=== PATIENT | male | born 1980 | race Caucasian/White ===

== ENCOUNTER 2017-07-24 10:13 | Emergency (ER) | payer OTHER ==
[2017-07-24] MEDS ORDERED: Ketorolac INJ* 60 MG/2 ML VIAL IM ONE (12:34)
[2017-07-24 12:42] VITALS: BP 142/90
--- NOTE | 2017-08-03 16:46 | UC ---
Jayden Miller Nilda, scribed for Violet Hamilton DO on 07/24/17 at 1234 . Back Pain HPI - HPI Summary HPI Summary: This patient is a 37 year old M presenting to [facility] accompanied by_ with a chief complaint of exacerbated chronic left lower back pain (constant, stabbing ) for the past two days. The patient normally rates the pain 9/10 in severity but is currently 3/10. Symptoms aggravated by standing, bending over, and sitting, and alleviated by recumbent position. He is on pain medication (muscle relaxer, ibuprofen rotated with Tylenol), which are currently not relieving his pain. He is unsure how back pain was exacerbated. Patient reports numbness of LLE (has occurred before), and coughing and chills (allergies). He denies bowel and urinary incontinence, abd pain, and NVD. Patient notes that he has sustained multiple injuries to this same area of his back over the past few years. - History of Current Complaint Chief Complaint: UCBackPain Stated Complaint: BACK PAIN Onset/Duration: Gradual Onset, Lasting Weeks, Still Present, Worse Since - two days ago Timing: Constant Severity Currently: Severe Pain Intensity: 9 Pain Scale Used: 0-10 Numeric Back Pain: Is Diffuse Character: Sharp Aggravating Factor(s): Bending, Other - standing and sitting Alleviating Factor(s): Other - recumbent position Associated Signs And Symptoms: Positive: Numbness - LLE - Allergies/Home Medications Allergies/Adverse Reactions: Allergies Allergy/AdvReac Type Severity Reaction Status Date / Time No Known Allergies Allergy Verified 07/24/17 10:57 PMH/Surg Hx/FS Hx/Imm Hx Endocrine History: Diabetes Respiratory History: Asthma - childhood Other GI/ History: C. Diff (1 year ago) - Surgical History Surgical History: None - Family History Known Family History: Positive: Cardiac Disease, Hypertension, Diabetes - Social History Alcohol Use: Occasionally Substance Use Type: None Smoking Status (MU): Never Smoked Tobacco Review of Systems Constitutional: Chills - allergies Respiratory: Cough - allergies Gastrointestinal: Other - negative: abdominal pain, N/V/D Genitourinary: Other - negative bowel and urinary incontinence Musculoskeletal: Other: - left lower back pain Neurological: Numbness - LLE All Other Systems Reviewed And Are Negative: Yes Physical Exam Triage Information Reviewed: Yes Appearance: Well-Appearing, No Pain Distress, Well-Nourished Vital Signs: Initial Vital Signs Temp 98.6 F 07/24/17 11:00 Pulse 80 07/24/17 11:00 Resp 20 07/24/17 11:00 BP 138/94 07/24/17 11:00 Pulse Ox 100 07/24/17 11:00 Vital Signs Reviewed: Yes Eyes: Positive: Conjunctiva Clear. Negative: Discharge ENT: Positive: Hearing grossly normal. Negative: Muffled/hoarse voice Neck exam: Normal Neck: Positive: Supple Respiratory: Positive: Lungs clear, Normal breath sounds, No respiratory distress, No accessory muscle use Cardiovascular: Positive: RRR, No Murmur Musculoskeletal: Positive: Other: - Strength sensation and reflex intact bilaterally; palpable paraspinal spasms; noted left greater than right; ROM limited in all planes due to pain Neurological: Positive: Alert, Muscle Tone Normal Psychological Exam: Normal Psychological: Positive: Age Appropriate Behavior Skin Exam: Normal Skin: Positive: Other - warm, dry, normal color Back Pain Course/Dx - Course Course Of Treatment: This patient is a 37 year old M presenting to [facility] with a chief complaint of exacerbated chronic left lower back pain (constant, stabbing ) for the past two days. The patient previously rated the pain 9/10 in severity but is currently 3/10. Symptoms are aggravated by standing, bending over, and sitting, and are alleviated by recumbent position. He is on pain medication ( muscle relaxer, ibuprofen rotated with Tylenol), which are currently not relieving his pain. He is unsure how back pain was exacerbated. Patient reports numbness of LLE (has occurred before), and coughing and chills (allergies). He denies bowel and urinary incontinence, abd pain, and N/V/D. Patient notes that he has sustained multiple injuries to this same area of his back over the past few years. High blood pressure noted. Patient was administered Toradol. He is stable and will be discharged with diagnoses of lumbar radiculopathy and back pain. He was instructed to follow up with PCP in 4 days. Patient is agreeable with this plan. - Differential Dx/Diagnosis Provider Diagnoses: lumbar radiculopathy, chronic low back pain, Elevated blood pressure without diagnosis of hypertension. Discharge - Discharge Plan Condition: Stable Disposition: HOME Patient Education Materials: Ketorolac (By injection), Lumbar Radiculopathy (ED ), Chronic Back Pain (ED) Forms: *Work Release Referrals: Amie Cm MD [Primary Care Provider] - 4 Days Additional Instructions: YOU WOULD LIKELY BENEFIT FROM OSTEOPATHIC MANIPULATION. WE RECOMMEND THAT YOU FIND AN OSTEOPATHIC PHYSICIAN IN YOUR AREA WHO DOES LYMPHATIC, MYOFACIAL AND VISCERAL WORK ACUPUNCTURE IS ANOTHER GREAT OPTION FOR IMPROVING THE PAIN IN YOUR BACK. Your blood pressure was elevated at this visit. That does not mean you have hypertension, it is probably due to your current condition. Please follow up with your primary care provider. The documentation as recorded by the Jayden cruz Nilda accurately reflects the service I personally performed and the decisions made by me, Violet Hamilton DO.
== END 2017-07-24 13:05 | disposition home or self-care (01) ==
LOC: UCEAST 10:13
DX: M54.16 Radiculopathy, lumbar region (principal); G89.29 Other chronic pain; M54.5 Low back pain; R03.0 Elevated blood-pressure reading, without diagnosis of hypertension; E11.9 Type 2 diabetes mellitus without complications; J45.909 Unspecified asthma, uncomplicated
CPT/HCPCS: 96372; 99212; G0463; J1885

== ENCOUNTER 2017-10-30 10:42 | Emergency (ER) | payer OTHER ==
[2017-10-30 11:14] VITALS: BP 158/95
--- NOTE | 2017-10-30 12:48 | UC ---
Zoltan Miller Stephanie, scribed for Cherry Asif MD on 10/30/17 at 1159 . Shortness of Breath HPI - HPI Summary HPI Summary: The pt is a 37 y/o M presenting to with c/o SOB that began 3 days ago on . Symptoms include LENZ, nausea, rhinorrhea, sore throat, decreased oral intake, burning chest pain associated with cough, vomiting and cough. The pt denies fever, abd pain and diarrhea. Throat pain is rated as a 3 in severity. The pt denies exposure to sick contacts. Pt is diabetic and checks blood sugar 2x per day. Morning blood sugar is typically between 100 and 120. A1C was documented at a 5 a year ago. - History of Current Complaint Chief Complaint: UCGeneralIllness Stated Complaint: COUGH CONGESTION Time Seen by Provider: 10/30/17 11:39 Hx Obtained From: Patient Onset/Duration: Gradual Onset, Lasting Days - 3, Still Present Timing: Constant Current Severity: Mild Alleviating Factors: Nothing Associated Signs & Symptoms: Positive: Cough (Productive), Chest Pain w/Cough. Negative: Fever - Allergy/Home Medications Allergies/Adverse Reactions: Allergies Allergy/AdvReac Type Severity Reaction Status Date / Time No Known Allergies Allergy Verified 10/30/17 11:14 Home Medications: Home Medications Cyclobenzaprine (NF) [Cyclobenzaprine 5 MG (NF)] 5 mg PO TID PRN 10/30/17 [ History Confirmed 10/30/17] Fexofenadine HCl [Allergy 24-Hr] 180 mg PO DAILY 10/30/17 [History Confirmed ] PMH/Surg Hx/FS Hx/Imm Hx Endocrine History: Diabetes Psychological History: Bipolar Disorder - Surgical History Surgical History: None Surgery Procedure, Year, and Place: denies - Family History Known Family History: Positive: Cardiac Disease, Hypertension, Diabetes - Social History Occupation: Employed Full-time Lives: Dormitory/Roommates Alcohol Use: Occasionally Substance Use Type: None Smoking Status (MU): Never Smoked Tobacco Review of Systems Constitutional: Other - decreased oral intake Skin: Negative Eyes: Negative ENT: Sore Throat, Nasal Discharge Respiratory: Cough Cardiovascular: Chest Pain - associated with cough Gastrointestinal: Vomiting, Nausea Genitourinary: Negative Motor: Negative Neurovascular: Negative Musculoskeletal: Negative Neurological: Headache Psychological: Negative All Other Systems Reviewed And Are Negative: Yes Physical Exam Triage Information Reviewed: Yes Appearance: Ill-Appearing Vital Signs: Initial Vital Signs Temp 98.2 F 10/30/17 11:09 Pulse 100 10/30/17 11:09 Resp 18 10/30/17 11:09 BP 158/95 10/30/17 11:09 Pulse Ox 97 10/30/17 11:09 Eyes: Positive: Conjunctiva Clear ENT: Positive: Pharyngeal erythema, TMs normal Neck: Positive: Supple, Nontender, No Lymphadenopathy Respiratory: Positive: Lungs clear, Normal breath sounds Cardiovascular: Positive: RRR, No Murmur Abdomen Description: Positive: Nontender, No Organomegaly Musculoskeletal: Positive: Strength Intact, ROM Intact Neurological: Positive: Alert, Muscle Tone Normal Skin Exam: Normal Diagnostics - Laboratory Diagnostic Studies Completed/Ordered: flu A positive Shortness of Breath Dx - Course Course Of Treatment: The pt is a 37 y/o M presenting to with c/o SOB that began 3 days ago on 10/27/17. Pt medications reviewed this visit. Tamiflu for flu B. Discussed transmission risks, isolation etc. - Differential Dx/Diagnosis Differential Diagnosis/HQI/PQRI: Bronchitis, Other - influenza Provider Diagnoses: influenza B Discharge - Discharge Plan Condition: Stable Disposition: HOME Prescriptions: Oseltamivir CAP* [Tamiflu CAP*] 75 mg PO BID #10 cap Patient Education Materials: Influenza (ED), Oseltamivir (By mouth) Forms: *Work Release Referrals: Amie Cm MD [Primary Care Provider] - Additional Instructions: Begin use of tamiflu 75mg twice daily to decrease the symptoms and risk of hospitalization from flu. If you have increasing shortness of breath or chest pain you should be reassessed. Contacts in your household might be candidates for tamiflu dependent on their health histories. The documentation as recorded by the Zoltan cruz Stephanie accurately reflects the service I personally performed and the decisions made by me, Cherry Asif MD.
== END 2017-10-30 12:50 | disposition home or self-care (01) ==
LOC: UCEAST 10:42
DX: J10.1 Influenza due to other identified influenza virus with other respiratory manifestations (principal); E11.9 Type 2 diabetes mellitus without complications; F31.9 Bipolar disorder, unspecified
CPT/HCPCS: 87502; 99212; G0463

== ENCOUNTER 2018-02-16 08:01 | Emergency (ER) | payer OTHER ==
[2018-02-16 08:14] VITALS: BP 133/67
--- NOTE | 2018-02-16 08:23 | UC ---
Throat Pain/Nasal Deandre HPI - HPI Summary HPI Summary: Pt presents with sinus pain/pressure/congestion, post nasal drip, and dry cough for the last week. He tells me that he gets sinus infections often and this feels the same. Has not been taking anything OTC but does take daily xzyal. Denies fever, chills, SOB, chest pain, abdominal pain, n/v/d/c. - History of Current Complaint Chief Complaint: UCGeneralIllness Stated Complaint: CONGESTED,COUGH Hx Obtained From: Patient Severity: Mild Pain Intensity: 1 Pain Scale Used: 0-10 Numeric Cough: Nonproductive - Allergies/Home Medications Allergies/Adverse Reactions: Allergies Allergy/AdvReac Type Severity Reaction Status Date / Time No Known Allergies Allergy Verified 02/16/18 08:07 Home Medications: Home Medications Levocetirizine Dihydrochloride [Xyzal] 5 mg PO BEDTIME 02/16/18 [History Confirmed 02/16/18] [place] Carbonate 2 tab PO DAILY 02/16/18 [History Confirmed 02/16/18] [place] Carbonate 3 tab PO BEDTIME 02/16/18 [History Confirmed 02/16/18] Sitagliptin Phos/Metformin HCl [Janumet 50-1,000 mg Tablet] 1 tab PO DAILY 02/16 [History Confirmed 02/16/18] PMH/Surg Hx/FS Hx/Imm Hx Endocrine History: Diabetes Psychological History: Anxiety, Depression, Bipolar Disorder - Surgical History Surgical History: None Surgery Procedure, Year, and Place: Denies - Family History Known Family History: Positive: None, Cardiac Disease, Hypertension, Diabetes - Social History Occupation: Employed Full-time Lives: With Family Alcohol Use: Occasionally Substance Use Type: None Smoking Status (MU): Never Smoked Tobacco Household Exposure Type: Cigarettes Review of Systems Constitutional: Negative Skin: Negative Eyes: Negative ENT: Nasal Discharge, Sinus Congestion, Sinus Pain/Tenderness Respiratory: Cough Cardiovascular: Negative Gastrointestinal: Negative Neurovascular: Negative Neurological: Negative Psychological: Negative All Other Systems Reviewed And Are Negative: Yes Physical Exam - Summary Physical Exam Summary: GENERAL: NAD. WDWN HEENT: NC/AT. Conjunctiva clear without inflammation or discharge. TMs intact , no bulging, erythema, or edema. Nasal mucosa mildly swollen and erythematous with clear discharge. TTP maxillary and frontal sinus. Posterior oropharynx without exudates, erythema, or tonsillar enlargement. Uvula midline. NECK: Supple without lymphadenopathy CHEST: CTAB. No r/r/w. No accessory muscle use. Breathing comfortably and in no distress. CV: RRR. Without m/r/g. Pulses intact. SKIN: No rashes, sores, lesions, or open wounds. NEURO: Alert. CN II-XII grossly intact. PSYCH: Age appropriate behavior. Triage Information Reviewed: Yes Vital Signs: Initial Vital Signs Temp 98.2 F 02/16/18 08:10 Pulse 66 02/16/18 08:10 Resp 16 02/16/18 08:10 BP 133/67 02/16/18 08:10 Pulse Ox 100 02/16/18 08:10 Throat Pain/Nasal Course/Dx - Course Course Of Treatment: Sinusitis - Differential Dx/Diagnosis Provider Diagnoses: Sinusitis Discharge - Sign-Out/Discharge Documenting (check all that apply): Discharge/Admit/Transfer - Discharge Plan Condition: Stable Disposition: HOME Prescriptions: Amoxicillin PO (*) [Amoxicillin 500 MG CAP*] 500 mg PO Q12H #20 cap Patient Education Materials: Sinusitis (ED) Referrals: Amie Cm MD [Primary Care Provider] - Additional Instructions: If you develop a fever, shortness of breath, chest pain, new or worsening symptoms - please call your PCP or go to the ED. - Billing Disposition and Condition Condition: STABLE Disposition: HOME
== END 2018-02-16 08:46 | disposition home or self-care (01) ==
LOC: UCEAST 08:01
DX: J32.9 Chronic sinusitis, unspecified (principal); E11.9 Type 2 diabetes mellitus without complications; F41.9 Anxiety disorder, unspecified; F31.9 Bipolar disorder, unspecified
CPT/HCPCS: 36415; 86703; 99212; G0463

== ENCOUNTER → 2018-08-13 15:35 | Emergency (ER) | payer OTHER ==
[~2018-08-13 15:35] MED LIST: Mouth Piece, Nicotine* 1 EACH CARTRIDGE INH PRN; Nicotine Inhaler* 10 MG AMP INH PRN
--- NOTE | 2018-08-13 17:08 | ED ---
Psychiatric Complaint - HPI Summary HPI Summary: This patient is a 38 year old M presenting to ED with a chief complaint of SI since 1 week ago when an ex who walked out on him contacted him again. The patient reports he was emotionally imbalanced and recently he has thought that he wants it all to end. The patient rates the pain 0/10 in severity. Symptoms aggravated by reappearance of his ex. Symptoms alleviated by nothing. Patient reports insomnia. PMHx of prior attempts of hurting himself and bipolar disorder at age 1. The patient does drink alcohol occasionally. Patient has never been admitted to a psychiatric hospital. - History Of Current Complaint Chief Complaint: EDMentalHealth Time Seen by Provider: 08/13/18 16:39 Hx Obtained From: Patient Onset/Duration: Sudden Onset, Lasting Weeks - 1 week ago, Still Present Timing: Weeks - 1 month ago Severity Currently: None Aggravating Factor(s): Other - reappearance of his ex Alleviating Factor(s): Nothing Related History: Positive For: Prior Psychiatric Issues Has Suicidal: Reports: Thoughts - Allergies/Home Medications Allergies/Adverse Reactions: Allergies Allergy/AdvReac Type Severity Reaction Status Date / Time No Known Allergies Allergy Verified 02/16/18 08:07 PMH/Surg Hx/FS Hx/Imm Hx Endocrine/Hematology History: Reports: Hx Diabetes - type 2 Denies: Hx Thyroid Disease Cardiovascular History: Denies: Hx Hypertension Respiratory History: Reports: Hx Asthma - as a child Denies: Hx Chronic Obstructive Pulmonary Disease (COPD) GI History: Denies: Hx Ulcer Psychiatric History: Reports: Hx Bipolar Disorder - Surgical History Surgery Procedure, Year, and Place: Denies Infectious Disease History: Yes Infectious Disease History: Reports: Hx Clostridium Difficile Denies: Hx Hepatitis, Hx Human Immunodeficiency Virus (HIV), Hx of Known/ Suspected MRSA, Hx Shingles, Hx Tuberculosis, Hx Known/Suspected VRE, Hx Known/ Suspected VRSA, History Other Infectious Disease, Traveled Outside the [place] in Last 30 Days - Family History Known Family History: Positive: Cardiac Disease, Hypertension, Diabetes - Social History Alcohol Use: Occasionally Substance Use Type: Reports: None Smoking Status (MU): Never Smoked Tobacco Review of Systems Negative: Fever, Chills Negative: Erythema Negative: Sore Throat Negative: Chest Pain Negative: Shortness Of Breath, Cough Negative: Abdominal Pain, Vomiting, Nausea Negative: dysuria, hematuria Negative: Myalgia, Edema Negative: Rash Neurological: Other - denies dizziness Psychological: Other - SI, "emotionally imbalanced and recently he has thought that he wants it all to end All Other Systems Reviewed And Are Negative: Yes Physical Exam - Summary Physical Exam Summary: Constitutional: Well-developed, Well-nourished, Alert. (-) Distressed Skin: Warm, Dry HENT: Normocephalic; Atraumatic Eyes: Conjunctiva normal Neck: Musculoskeletal ROM normal neck. (-) JVD, (-) Stridor, (-) Tracheal deviation Cardio: Rhythm regular, rate normal, Heart sounds normal; Intact distal pulses; The pedal pulses are 2+ and symmetric. Radial pulses are 2+ and symmetric. (-) Murmur Pulmonary/Chest wall: Effort normal. (-) Respiratory distress, (-) Wheezes, (-) Rales Abd: Soft, (-) epigastric tenderness, (-) Distension, (-) Guarding, (-) Rebound Musculoskeletal: (-) Edema Lymph: (-) Cervical adenopathy Neuro: Alert, Oriented x3 Psych: Mood and affect Normal Triage Information Reviewed: Yes Vital Signs On Initial Exam: Initial Vitals Temp Pulse Resp BP Pulse Ox 98.3 F 103 18 158/86 98 08/13/18 16:20 08/13/18 16:20 08/13/18 16:20 08/13/18 16:20 08/13/18 16:20 Vital Signs Reviewed: Yes Diagnostics - Vital Signs Vital Signs Temp Pulse Resp BP Pulse Ox 08/13/18 16:20 98.3 F 103 18 158/86 98 - Laboratory Result Diagrams: 08/13/18 17:12 08/13/18 17:12 Lab Statement: Any lab studies that have been ordered have been reviewed, and results considered in the medical decision making process. Course/Dx - Course Assessment/Plan: This patient is a 38 year old M presenting to ED with a chief complaint of SI since 1 week ago when an ex who walked out on him contacted him again. This patient will be signed out to Dr. Randolph, pending dispo, awaiting MHE. - Differential Dx/Clinical Impression Provider Diagnosis: Anxiety, Depression Discharge - Sign-Out/Discharge Documenting (check all that apply): Sign-Out Patient - pending dispo, awaiting MHE Signing out patient TO: Gabby Randolph Receiving patient FROM: Beto Savage - Discharge Plan Condition: Stable Disposition: HOME Patient Education Materials: Depression (ED), Anxiety (ED), Suicide Prevention (ED) Referrals: [facility] [Other] (Please call the clinic first thing in the morning, to schedule a follow up appointment.) Amie Cm MD [Primary Care Provider] - - Billing Disposition and Condition Condition: STABLE Disposition: Home - Attestation Statements Document Initiated by Scribe: Yes Documenting Scribe: Jase Saba Provider For Whom Ceciliaibe is Documenting (Include Credential): Beto Savage MD Scribe Attestation: I, Jase Saba, scribed for Beto Savage MD on 08/17/18 at 1133. Scribe Documentation Reviewed: Yes Provider Attestation: The documentation as recorded by the Jase cruz accurately reflects the service I personally performed and the decisions made by me, Beto Savage MD
[2018-08-13 17:23] LABS: ABS Basophils 0.1 10^3/ul (0-0.2); ABS Eosinophils 0.3 10^3/ul (0-0.6); ABS Lymphocytes 1.6 10^3/ul (1.0-4.8); ABS Monocytes 0.5 10^3/ul (0-0.8); ABS Neutrophils 7.5 10^3/ul (1.5-7.7); ABS Nucleated RBC 0 10^3/ul; Hematocrit 46 % (42-52); Hemoglobin 16.6 g/dl (14.0-18.0); Lymphocyte % 16.4 % (25-47); Mean Corpuscular HGB Conc 36 g/dl (31-36); Mean Corpuscular Hemoglobin 32 pg (27-31); Mean Corpuscular Volume 88 fL (80-94); Mean Platelet Volume 7.8 um3 (7.4-10.4); Nucleated Red Blood Cells % 0.1; Platelet Count 312 10^3/ul (150-450); Red Blood Count 5.26 10^6/ul (4.00-5.40); Red Cell Distribution Width 12 % (10.5-15); White Blood Count 9.9 10^3/ul (3.5-10.8)
[2018-08-13 17:38] LABS: Urine Appearance Clear; Urine Blood Negative (Negative); Urine Color Straw; Urine Ketones Negative (Negative); Urine Protein Negative (Negative); Urine Red Blood Cell Absent (Absent); Urine Specific Gravity 1.005 (1.010-1.030); Urine Urobilinogen Negative (Negative); Urine White Blood Cell 1+(6-10/hpf) (Absent)
[2018-08-13 17:38] LABS: EGFR Non-African American 80.4 (>60)
--- NOTE | 2018-08-13 19:48 | ED ---
Progress - Progress Note Progress Note: 19:00 hrs - Pt sign out received from Dr. Beto Savage MD at the change of shift due to a pending MHE Pt is medically cleared for a MHE Course/Dx - Course Course Of Treatment: The pt will be discharged with a final Dx of anxiety and depression. He has been referred to the [facility]. - Diagnoses Provider Diagnoses: Anxiety, Depression Discharge - Sign-Out/Discharge Documenting (check all that apply): Patient Departure - DC - Discharge Plan Condition: Stable Disposition: HOME Patient Education Materials: Depression (ED), Anxiety (ED), Suicide Prevention (ED) Referrals: [facility] [Other] (Please call the clinic first thing in the morning, to schedule a follow up appointment.) Amie Cm MD [Primary Care Provider] - - Billing Disposition and Condition Condition: STABLE Disposition: Home - Attestation Statements Document Initiated by Scribe: Yes Documenting Scribe: Mary Rossi Provider For Whom Debra is Documenting (Include Credential): Dr. Gabby Randolph MD Scribe Attestation: Mary Miller , scribed for Dr. Gabby Randolph MD on 08/14/18 at 0517. Scribe Documentation Reviewed: Yes Provider Attestation: The documentation as recorded by the Mary cruz accurately reflects the service I personally performed and the decisions made by , Dr. Gabby Randolph MD
[2018-08-14 04:07] VITALS: BP 141/97
== END | disposition home or self-care (01) ==
LOC: ED 15:35
DX: F41.9 Anxiety disorder, unspecified (principal); F32.9 Major depressive disorder, single episode, unspecified; R45.851 Suicidal ideations
CPT/HCPCS: 36415; 80053; 80307; 80320; 80329; 81003; 81015; 84443; 85025; 87086; 99284; G0480

== ENCOUNTER 2018-08-19 09:13 | Emergency (ER) | payer OTHER ==
[2018-08-19 09:54] VITALS: BP 142/94
--- NOTE | 2018-08-19 11:59 | UC ---
FLU HPI - HPI Summary HPI Summary: 2 DAYS OF FEVER WITH TMAX 100.7, CHILLS, SLIGHT NAUSEA/DECREASED APPETITE, MYALGIAS, HEADACHE AND OVERALL MALAISE. ALSO WITH MILD COUGH AND CONGESTION. NO FLU SHOT YET THIS SEASON. - History of Current Complaint Chief Complaint: UCGeneralIllness Stated Complaint: CHILLS, SWEATS, LOSS OF APPETITE Time Seen by Provider: 08/19/18 11:10 Hx Obtained From: Patient Onset/Duration: Gradual Onset, Lasting Days, Still Present Severity Currently: Moderate Severity Initially: Moderate Pain Intensity: 5 Pain Scale Used: 0-10 Numeric Associated Signs & Symptoms: Positive: Fever, Myalgia, Cough, Headache - Allergy/Home Medications Allergies/Adverse Reactions: Allergies Allergy/AdvReac Type Severity Reaction Status Date / Time No Known Allergies Allergy Verified 08/19/18 09:54 PMH/Surg Hx/FS Hx/Imm Hx Endocrine History: Diabetes Respiratory History: Asthma - Surgical History Surgical History: Yes Surgery Procedure, Year, and Place: Denies - Family History Known Family History: Positive: Cardiac Disease, Hypertension, Diabetes - Social History Alcohol Use: Occasionally Substance Use Type: None Smoking Status (MU): Never Smoked Tobacco Household Exposure Type: Cigarettes Review of Systems Constitutional: Fever, Chills, Fatigue ENT: Nasal Discharge Respiratory: Cough Cardiovascular: Negative Gastrointestinal: Nausea Genitourinary: Negative Musculoskeletal: Myalgia Neurological: Headache All Other Systems Reviewed And Are Negative: Yes Physical Exam Triage Information Reviewed: Yes Appearance: Well-Appearing, No Pain Distress, Well-Nourished Vital Signs: Initial Vital Signs Temp 97.6 F 08/19/18 09:48 Pulse 95 08/19/18 09:48 Resp 18 08/19/18 09:48 BP 142/94 08/19/18 09:48 Pulse Ox 99 08/19/18 09:48 Laboratory Tests 08/19/18 11:55 Influenza A (Rapid) Negative Influenza B (Rapid) Negative Vital Signs Reviewed: Yes Eyes: Positive: Conjunctiva Clear ENT: Positive: Hearing grossly normal, Pharynx normal, TMs normal Neck: Positive: Supple, Nontender, No Lymphadenopathy Respiratory Exam: Normal Cardiovascular Exam: Normal Abdomen Description: Positive: Soft Musculoskeletal: Positive: No Edema Neurological: Positive: Alert Psychological: Positive: Age Appropriate Behavior Skin: Negative: rashes Flu Course/Dx - Differential Dx/Diagnosis Provider Diagnoses: ACUTE VIRAL SYNDROME Discharge - Sign-Out/Discharge Documenting (check all that apply): Patient Departure All imaging exams completed and their final reports reviewed: No Studies - Discharge Plan Condition: Stable Disposition: HOME Patient Education Materials: Viral Syndrome (ED) Forms: *Work Release Referrals: Amie Cm MD [Primary Care Provider] - If Needed Additional Instructions: FLU SWAB NEGATIVE. YOUR SYMPTOMS ARE LIKELY VIRALLY MEDIATED AND SHOULD RESOLVE ON THEIR OWN WITH TIME. NO INDICATION FOR ANTIBIOTICS AT PRESENT. REST, HYDRATE , OTC MEDS NEEDED. SEEK FOLLOW-UP IF YOU ARE NOT IMPROVING OVER THE NEXT 1-2 WEEKS. - Billing Disposition and Condition Condition: STABLE Disposition: Home
== END 2018-08-19 12:30 | disposition home or self-care (01) ==
LOC: UCEAST 09:13
DX: B34.9 Viral infection, unspecified (principal)
CPT/HCPCS: 99211; G0463

== ENCOUNTER 2019-07-06 09:56 | Emergency (ER) | payer OTHER ==
[2019-07-06 10:05] VITALS: BP 148/105
--- NOTE | 2019-07-06 10:47 | UC ---
Back Pain HPI - HPI Summary HPI Summary: 39 year old with PMH + for psych, presents with left sided back pain. Patient states he has a history of back pain, no trauma or injury, for 20 years. Treated once with PT, improved. Patient is taking 800mg of Motrin every 4-6 hours currently without much benefit. Would like to avoid any addictive medications, due to "Craving" for manic medications. Has taken flexeril in the past without complications. No bowel/ bladder dysfunction. Denies numbness/ tingling, however he has had in past. - History of Current Complaint Chief Complaint: UCBackPain Stated Complaint: BACK PAIN Time Seen by Provider: 07/06/19 10:46 Hx Obtained From: Patient Onset/Duration: Sudden Onset, Lasting Days - since friday Timing: Constant Severity Initially: Moderate Severity Currently: Moderate Pain Intensity: 5 Pain Scale Used: 0-10 Numeric Back Pain: Is Discrete @ - L lower back Character: Dull, Aching, Throbbing, Spasmodic Aggravating Factor(s): Movement, Lifting, Bending Alleviating Factor(s): Rest - better with sleep Associated Signs And Symptoms: Negative: Numbness, Tingling, Flank Pain, Bladder Incontinence, Bowel Incontinence, Weight Loss - Allergies/Home Medications Allergies/Adverse Reactions: Allergies Allergy/AdvReac Type Severity Reaction Status Date / Time feathers Allergy Rash Verified 07/06/19 10:06 geovanna Allergy GI Upset Verified 07/06/19 10:06 eggs Allergy GI Upset Uncoded 07/06/19 10:06 environmental Allergy Sneezing Uncoded 07/06/19 10:06 Home Medications: Home Medications Gabapentin [Neurontin] 1 tab PO BID 07/06/19 [History Confirmed 07/06/19] Ibuprofen 800 mg PO Q4HR PRN 07/06/19 [History Confirmed 07/06/19] Multivitamin [Multivitamins] 1 tab PO DAILY 07/06/19 [History Confirmed 07/06/19 ] PMH/Surg Hx/FS Hx/Imm Hx Previously Healthy: Yes - Surgical History Surgical History: Unable to Obtain/Confirm Surgery Procedure, Year, and Place: Denies - Family History Known Family History: Positive: Cardiac Disease, Hypertension, Diabetes, Non- Contributory - Social History Alcohol Use: Occasionally Substance Use Type: None Smoking Status (MU): Never Smoked Tobacco Household Exposure Type: Cigarettes Review of Systems All Other Systems Reviewed And Are Negative: Yes Constitutional: Positive: Negative Musculoskeletal: Positive: Arthralgia, Myalgia Is Patient Immunocompromised?: No Physical Exam Triage Information Reviewed: Yes Appearance: Well-Appearing, No Pain Distress, Well-Nourished Vital Signs: Initial Vital Signs Temp 98.7 F 07/06/19 10:00 Pulse 80 07/06/19 10:00 Resp 18 07/06/19 10:00 BP 148/105 07/06/19 10:00 Pulse Ox 100 07/06/19 10:00 Eyes: Positive: Conjunctiva Clear Musculoskeletal: Positive: ROM Intact - normal flexion, extension of spine, difficulty standing on L leg due to pain, neg rhomberg, decreased strength with L hip abd due to pain, full ROM/ Strenght otherwise in LEs. SITLT b/l distal to hips. TTP over soft tissue lower left back, no CVA tenderness, no SI joint tenderness, no TTP over spine. Neurological: Positive: Other: - patellar reflexes 2+ b/l Psychological Exam: Normal Skin Exam: Normal Back Pain Course/Dx - Course Course Of Treatment: Lumbago: - Mobic twice daily to decrease inflammation, swelling - May take Tylenol as needed for pain with Mobic, however avoid Motrin/ Advil/ Alleve/ Naproxen - Increase fluid intake - Rest as much as possible - Flexeril as needed every 8 hours for muscle spasm, may cause drowsiness - REturn with weakness, numbness, tingling. - Differential Dx/Diagnosis Differential Diagnosis/HQI/PQRI: Cauda Equina Syndrome, Strain, Sprain Provider Diagnosis: Lumbago Discharge ED - Sign-Out/Discharge Documenting (check all that apply): Patient Departure All imaging exams completed and their final reports reviewed: Yes - Discharge Plan Condition: Good Disposition: HOME Prescriptions: Cyclobenzaprine TAB* [Flexeril 10 MG TAB*] 10 mg PO TID PRN #30 tab PRN Reason: muscle spasms Meloxicam [Mobic] 7.5 mg PO BID #20 tablet Patient Education Materials: Back Pain (ED), Lower Back Exercises (ED) Referrals: Amie Cm MD [Primary Care Provider] - Additional Instructions: - Mobic twice daily to decrease inflammation, swelling - May take Tylenol as needed for pain with Mobic, however avoid Motrin/ Advil/ Alleve/ Naproxen - Increase fluid intake - Rest as much as possible - Flexeril as needed every 8 hours for muscle spasm, may cause drowsiness - REturn with weakness, numbness, tingling. - Billing Disposition and Condition Condition: GOOD Disposition: Home
== END 2019-07-06 11:51 | disposition home or self-care (01) ==
LOC: UCEAST 09:56
DX: M54.5 Low back pain (principal)
CPT/HCPCS: 72110; 99212; G0463

== ENCOUNTER 2019-08-26 15:06 | Emergency (ER) | payer OTHER ==
[2019-08-26 15:22] VITALS: BP 142/87
--- NOTE | 2019-08-26 15:29 | UC ---
Eye Complaint HPI - HPI Summary HPI Summary: 39-year-old male who awakened with a mildly swollen left eyelid. He denies any recent cold symptoms. He denies any recent new medications. He does not wear contact lenses. He states it's mildly itchy. No pus drainage. No visual changes. - History of Current Complaint Chief Complaint: UCAllergicReaction Stated Complaint: SWOLLEN EYE Time Seen by Provider: 08/26/19 15:12 Hx Obtained From: Patient Onset/Duration: Gradual Onset Timing: Constant Severity Initially: Moderate Severity Currently: Mild Pain Intensity: 3 Location of Injury: Other - No injury Aggravating Factor(s): Nothing Alleviating Factor(s): Nothing Associated Signs And Symptoms: Positive: Drainage (Clear) - Watery drainage from left eye., Swelling - Mild edema left upper eyelid. - Allergies/Home Medications Allergies/Adverse Reactions: Allergies Allergy/AdvReac Type Severity Reaction Status Date / Time feathers Allergy Rash Verified 08/26/19 15:19 geovanna Allergy GI Upset Verified 08/26/19 15:19 eggs Allergy GI Upset Uncoded 08/26/19 15:19 environmental Allergy Sneezing Uncoded 08/26/19 15:19 PMH/Surg Hx/FS Hx/Imm Hx Previously Healthy: Yes Endocrine History: Diabetes Cardiovascular History: Hypertension - Surgical History Surgical History: Unable to Obtain/Confirm Surgery Procedure, Year, and Place: Denies - Family History Known Family History: Positive: Cardiac Disease, Hypertension, Diabetes, Non- Contributory - Social History Lives: With Family Alcohol Use: Occasionally Substance Use Type: None Smoking Status (MU): Never Smoked Tobacco Household Exposure Type: Cigarettes Review of Systems All Other Systems Reviewed And Are Negative: Yes Eyes: Positive: Drainage - Some watery drainage left eye., Other - Mild swelling of eyelids. Is Patient Immunocompromised?: No Physical Exam Triage Information Reviewed: Yes Appearance: Well-Appearing, No Pain Distress, Well-Nourished Vital Signs: Initial Vital Signs Temp 99.1 F 08/26/19 15:19 Pulse 88 08/26/19 15:19 Resp 18 08/26/19 15:19 BP 142/87 08/26/19 15:19 Pulse Ox 99 08/26/19 15:19 Vital Signs Reviewed: Yes Eyes: Positive: Conjunctiva Clear, Discharge - Watery drainage left eye, left upper eyelid is mildly edematous but no cellulitis. Mild tenderness on palpation. I do not visualize a stye however there is mildly increased redness at the outer canthus of the upper left eyelid. Minimal swelling of the left lower lid. Sclera is injected. Eye Complaint Course/Dx - Course Course Of Treatment: At this point in time I think this may be a developing stye. The patient can use cool moist compresses to the area 4-6 times a day. He is to recheck with an private mortgage banker safe for any worsening symptoms tomorrow or Friday. He develops any purulent drainage then he is to have it rechecked this weekend. - Differential Dx/Diagnosis Provider Diagnosis: Irritation of eyelid, Edema of left eyelid Discharge ED - Sign-Out/Discharge Documenting (check all that apply): Patient Departure All imaging exams completed and their final reports reviewed: No Studies - Discharge Plan Condition: Good Disposition: HOME Patient Education Materials: Sabiha (ED) Referrals: Amie Cm MD [Primary Care Provider] - Additional Instructions: Cor moist compresses to her eye 4-6 times a day for 20 minutes each time. If any worsening of symptoms follow-up with an private mortgage banker safe either tomorrow or Friday. - Billing Disposition and Condition Condition: GOOD Disposition: Home
== END 2019-08-26 15:44 | disposition home or self-care (01) ==
LOC: UCEAST 15:06
DX: H02.844 Edema of left upper eyelid (principal); H57.89 Other specified disorders of eye and adnexa; E11.9 Type 2 diabetes mellitus without complications; I10 Essential (primary) hypertension; Z91.09 Other allergy status, other than to drugs and biological substances; Z91.012 Allergy to eggs
CPT/HCPCS: 99211; G0463

== ENCOUNTER 2019-12-12 12:14 | Emergency (ER) | payer OTHER ==
[2019-12-12 12:56] VITALS: BP 134/88
[2019-12-12 13:37] LABS: Influenza A Molecular POSITIVE (Negative)
--- NOTE | 2019-12-12 13:37 | UC ---
FLU HPI - HPI Summary HPI Summary: 39 yo diabetic with - History of Current Complaint Chief Complaint: UCRespiratory Stated Complaint: FLU LIKE SYMPTOMS Time Seen by Provider: 12/12/19 13:34 Hx Obtained From: Patient Onset/Duration: Sudden Onset, Lasting Days - 1 Severity Currently: Moderate Severity Initially: Moderate Pain Intensity: 8 Associated Signs & Symptoms: Positive: Fever, T Max - 103 at home, Myalgia, Cough, Nasal Congestion, Headache - Risk Factors Influenza Risk Factors: Chronic Medical or Immunosuppresive Condition - Allergy/Home Medications Allergies/Adverse Reactions: Allergies Allergy/AdvReac Type Severity Reaction Status Date / Time feathers Allergy Rash Verified 12/12/19 12:56 geovanna Allergy GI Upset Verified 12/12/19 12:56 eggs Allergy GI Upset Uncoded 12/12/19 12:56 environmental Allergy Sneezing Uncoded 12/12/19 12:56 Home Medications: Home Medications Bupropion XL (NF) [Wellbutrin XL 300 MG (NF)] 300 mg PO BID 11/30/15 [History Confirmed 12/12/19] Levocetirizine Dihydrochloride [Xyzal] 5 mg PO BEDTIME 02/16/18 [History Confirmed 12/12/19] Roberts Carbonate 2 tab PO DAILY 02/16/18 [History Confirmed 12/12/19] Roberts Carbonate 3 tab PO BEDTIME 02/16/18 [History Confirmed 12/12/19] Sitagliptin Phos/Metformin HCl [Janumet 50-1,000 mg Tablet] 1 tab PO BID [History Confirmed 12/12/19] Gabapentin [Neurontin] 1 tab PO BID 07/06/19 [History Confirmed 12/12/19] Ibuprofen 800 mg PO Q4HR PRN 07/06/19 [History Confirmed 12/12/19] Multivitamin [Multivitamins] 1 tab PO DAILY 07/06/19 [History Confirmed 12/12/19 ] Oseltamivir CAP* [Tamiflu CAP*] 75 mg PO BID #10 cap 12/12/19 [Rx] PMH/Surg Hx/FS Hx/Imm Hx Endocrine History: Diabetes Psychological History: Anxiety - Surgical History Surgical History: None Surgery Procedure, Year, and Place: Denies - Family History Known Family History: Positive: Cardiac Disease, Hypertension, Diabetes - Social History 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 Lives: With Family Alcohol Use: Weekly Substance Use Type: None Smoking Status (MU): Never Smoked Tobacco Household Exposure Type: Cigarettes Review of Systems All Other Systems Reviewed And Are Negative: Yes Constitutional: Positive: Fever, Fatigue, Other - has nt checked blood sugar today; has held off taking his diabetes meds. Skin: Positive: Negative Eyes: Positive: Negative ENT: Positive: Sore Throat, Nasal Discharge Respiratory: Positive: Cough. Negative: Shortness Of Breath Cardiovascular: Negative: Palpitations, Chest Pain Gastrointestinal: Positive: Nausea - decreased appetite Genitourinary: Positive: Negative Motor: Positive: Weakness Neurovascular: Positive: Negative Musculoskeletal: Positive: Myalgia Neurological/Mental Status: Positive: Headache Psychological: Positive: Anxious Is Patient Immunocompromised?: No Physical Exam Triage Information Reviewed: Yes Appearance: Ill-Appearing - looks mildly unwell Vital Signs: Initial Vital Signs Temp 100.0 F 12/12/19 12:52 Pulse 105 12/12/19 12:52 Resp 16 12/12/19 12:52 BP 134/88 12/12/19 12:52 Pulse Ox 98 12/12/19 12:52 ENT: Positive: Pharyngeal erythema, TMs normal, Tonsillar swelling. Negative: Tonsillar exudate Neck: Positive: Supple, Nontender, No Lymphadenopathy Respiratory: Positive: Lungs clear, Normal breath sounds, No respiratory distress Cardiovascular: Positive: RRR, No Murmur, Tachycardia Musculoskeletal Exam: Normal Neurological Exam: Normal Psychological Exam: Other - anxious Skin Exam: Normal Diagnostics - Laboratory Lab Results: rapid flu A positive. Flu Course/Dx - Course Course Of Treatment: Tamiflu given due to hx of diabetes, discussed symptomatic treatment as well as symptoms to monitor. - Differential Dx/Diagnosis Differential Diagnosis/HQI/PQRI: Influenza, Pneumonia, Upper Respiratory Infection Provider Diagnosis: Influenza A Discharge ED - Sign-Out/Discharge Documenting (check all that apply): Patient Departure All imaging exams completed and their final reports reviewed: No Studies - Discharge Plan Condition: Stable Disposition: HOME Prescriptions: Oseltamivir CAP* [Tamiflu CAP*] 75 mg PO BID #10 cap Patient Education Materials: Influenza (ED) Forms: *Work Release Referrals: Amie Cm MD [Primary Care Provider] - Additional Instructions: Please begin Tamiflu to blunt the symptoms of illness. Ensure high intake of fluids, and I suggest soup broth/soups/smoothies to increase nutrition. Ensure that you are checking your blood sugars. Please proceed to the emergency room if you are having increased fever, chest pain or shortness of breath. Off work until you are free of fever for 24 hours. - Billing Disposition and Condition Condition: STABLE Disposition: Home
== END 2019-12-12 14:09 | disposition home or self-care (01) ==
LOC: UCEAST 12:14
DX: J10.1 Influenza due to other identified influenza virus with other respiratory manifestations (principal); E11.9 Type 2 diabetes mellitus without complications; F41.9 Anxiety disorder, unspecified; Z91.09 Other allergy status, other than to drugs and biological substances; Z91.012 Allergy to eggs; Z79.84 Long term (current) use of oral hypoglycemic drugs; Z79.899 Other long term (current) drug therapy
CPT/HCPCS: 87651; 99212; G0463

== ENCOUNTER 2020-01-10 12:17 | Emergency (ER) | payer OTHER ==
--- NOTE | 2020-01-10 12:28 | UC ---
Respiratory Complaint HPI - HPI Summary HPI Summary: 39-year-old male presenting with complaint of intermittent productive cough of clear sputum for the last couple weeks. Patient states he was diagnosed with influenza A on 12/12/2019. Patient states he began with a cough after most of his flu symptoms resolved. States cough has gradually improved but is still prominent. Notes shortness of breath with coughing fits. Denies shortness of breath currently. Denies chest pain and discomfort. Denies wheezing. Notes nasal congestion with postnasal drip. Patient believed that his symptoms were just allergies at first. Denies fever and chills. Denies body aches. Denies nausea and vomiting. Denies decreased appetite and fluid intake. States cough drops significantly alleviate cough. Does know history of asthma that he states has not been an issue for the last 20 years. PMHx significant for type 2 diabetes and bipolar disorder. Denies ill contact. Denies concern for covid 19 - History of Current Complaint Stated Complaint: CHEST CONGESTION,COUGH Hx Obtained From: Patient - Allergies/Home Medications Allergies/Adverse Reactions: Allergies Allergy/AdvReac Type Severity Reaction Status Date / Time feathers Allergy Rash Verified 01/10/20 12:44 geovanna Allergy GI Upset Verified 01/10/20 12:44 eggs Allergy GI Upset Uncoded 01/10/20 12:44 environmental Allergy Sneezing Uncoded 01/10/20 12:44 Home Medications: Home Medications Bupropion XL (NF) [Wellbutrin XL 300 MG (NF)] 300 mg PO BID 11/30/15 [History Confirmed 01/10/20] Levocetirizine Dihydrochloride [Xyzal] 5 mg PO BEDTIME 02/16/18 [History Confirmed 01/10/20] Pollard Carbonate 2 tab PO DAILY 02/16/18 [History Confirmed 01/10/20] Pollard Carbonate 3 tab PO BEDTIME 02/16/18 [History Confirmed 01/10/20] Sitagliptin Phos/Metformin HCl [Janumet 50-1,000 mg Tablet] 1 tab PO BID [History Confirmed 01/10/20] Gabapentin [Neurontin] 1 tab PO BID 07/06/19 [History Confirmed 01/10/20] Ibuprofen 800 mg PO Q4HR PRN 07/06/19 [History Confirmed 01/10/20] Multivitamin [Multivitamins] 1 tab PO DAILY 07/06/19 [History Confirmed 01/10/20 ] Albuterol HFA INHALER* [Ventolin HFA Inhaler*] 1 - 2 puff INH Q6H PRN #1 mdi [Rx] PMH/Surg Hx/FS Hx/Imm Hx Endocrine History: Diabetes Respiratory History: Asthma Psychological History: Bipolar Disorder - Surgical History Surgical History: None Surgery Procedure, Year, and Place: Denies - Family History Known Family History: Positive: Cardiac Disease, Hypertension, Diabetes, Non- Contributory - Social History Alcohol Use: Weekly Substance Use Type: None Smoking Status (MU): Never Smoked Tobacco Household Exposure Type: Cigarettes Review of Systems All Other Systems Reviewed And Are Negative: Yes Constitutional: Positive: Negative ENT: Positive: Nasal Discharge, Sinus Congestion Respiratory: Positive: Shortness Of Breath - with coughing fits, Cough Cardiovascular: Positive: Negative Gastrointestinal: Positive: Negative Musculoskeletal: Positive: Negative Neurological/Mental Status: Positive: Negative Physical Exam - Summary Physical Exam Summary: Vital Signs Reviewed: Yes A+Ox3, no distress, well-appearing Eyes: Conjunctiva Clear ENT: Hearing grossly normal, TM x 2 clear, moist, uvula midline, no exudate, no erythema, +PND Neck: Positive: Supple Respiratory: Positive: No respiratory distress, No accessory muscle use + CTA throughout no w/r Cardiovascular: RRR nl s1, s2 no m/r Musculoskeletal Exam: MEDINA x 4 without difficulty Neurological: Positive: Alert Psychological: Positive: age appropriate behavior Skin: Positive: no rash, no ecchymosis Vital Signs: Vital Signs (72 hours) 01/10/20 13:05 Temperature 98.3 F Pulse Rate 77 Respiratory 16 Rate Blood Pressure 137/83 (mmHg) O2 Sat by Pulse 97 Oximetry Respiratory Course/Dx - Course Course Of Treatment: Discussed likely viral versus allergic etiology of respiratory symptoms. Instructed to continue with allergy medications and cough drops. I also provided the patient with an albuterol inhaler to alleviate shortness of breath with coughing fits. Instructed to increase fluid intake. Instructed to follow up with PCP if symptoms persist and to go to ED with any new or worsening symptoms. Patient voiced understanding and agreed with the treatment plan. - Differential Dx/Diagnosis Differential Diagnosis/HQI/PQRI: Asthma, Bronchitis, Sinusitis Provider Diagnosis: Acute bronchitis with bronchospasm Discharge ED - Sign-Out/Discharge Documenting (check all that apply): Patient Departure All imaging exams completed and their final reports reviewed: No Studies - Discharge Plan Condition: Stable Disposition: HOME Prescriptions: Albuterol HFA INHALER* [Ventolin HFA Inhaler*] 1 - 2 puff INH Q6H PRN #1 mdi PRN Reason: Sob/Wheezing Patient Education Materials: Acute Bronchitis (ED), Bronchospasm (ED) Referrals: Amie Cm MD [Primary Care Provider] - If Needed Additional Instructions: As discussed, your symptoms are most likely caused by a virus and should resolve without treatment. Use the inhaler as needed for shortness of breath/wheezing. You may continue to use cogh drops and take your allergy medication. You may use nasal saline spray or Flonase to help alleviate post nasal drainage. Get plenty of rest and increase fluids. Follow up with your primary care doctor if your symptoms worsen or do not improve within 2-3 weeks. Go to the emergency room if you experience new or worsening symptoms. - Billing Disposition and Condition Condition: STABLE Disposition: Home
[2020-01-10 13:13] VITALS: BP 137/83
== END 2020-01-10 13:30 | disposition home or self-care (01) ==
LOC: UCEAST 12:17
DX: J20.9 Acute bronchitis, unspecified (principal); E11.9 Type 2 diabetes mellitus without complications; Z79.84 Long term (current) use of oral hypoglycemic drugs; Z91.012 Allergy to eggs; Z91.09 Other allergy status, other than to drugs and biological substances
CPT/HCPCS: 99212; G0463